=== PATIENT | male | born 1960 | race Caucasian/White ===

== ENCOUNTER → 2019-11-16 10:53 | Outpatient (BNVA) | payer MEDICARE, SELFPAY | PROVIDERS: Family Provider Family Medicine; PCP Family Medicine; Visit Provider Family Medicine | DX: Z01.810 Encounter for preprocedural cardiovascular examination (principal); M54.2 Cervicalgia | CPT/HCPCS: 36415; 80053; 85025 ==

== ENCOUNTER 2019-12-04 05:49 | Inpatient (IN) | payer MEDICARE, SELFPAY ==
[2019-12-01 10:59] VITALS: BMI 29.2
--- NOTE | 2019-12-01 11:28 | P.ANES_ITS ---
Pre-Anesthetic Assessment Pre-Anesthetic Assessment: Height/Weight: Height 1.96 m Weight 112.037 kg Preop Diagnosis: Cervical disc disease Proposed Procedure: Operation Date: 12/04/19 07:00 Proposed Procedures p Anterior Cervical Discectomy&Fusion 3Lev(Not Applicable) - Irving Bustos MD Was Beta Haim taken within 24 hours: N/A Social: Packs per day: 1.5 ppd 12-18 years of age, Comment: quit age 17; saw a family law legal assistant r/o COPD Exam: Pre-Anes Outpt Exam: alert, oriented x 3, clear to auscultation bilaterally and regular rate & rhythm Airway: Submandibular: WNL Cervical ROM: WNL MP: 3 Additional comments: Edentuloous,schneider, JOSE RAUL Pulmonary: Pulmonary: Asthma Comments: Breathing feels good, last used inhaler months ago CV/HEM: CV/HEM: HTN Comments: off BP meds since 07/03 with adrenal insufficiency : Comments: adrenal insufficiency GI: GI: GERD Comments: well controlled Metabolic: Comments: adrenal insufficiency, cholesterol Musc/skel: Musc/skel: Lower Back Pain Comments: cervical disc disease with pain headache, bolateral radiculopathy and weakness Neuropsych: Neuropsych: Seizure Comments: 1999 unknown CVA '16 memory, slurred, generalized weakness, some short term memory Anesthetic Plan: ASA status: III Anesthesia: General PFSH Anesthesia PFSH: Surgical History (Updated 11/16/19 @ 11:24 by Arielle Leavitt DO) H/O circumcision (Acute) H/O lithotripsy (Acute) S/P cholecystectomy (Acute) S/P knee replacement (Acute) Social History Smoking and tobacco status: former smoker Alcohol intake: never Data Anesthesia Cardiac Studies: No Data to Display
[2019-12-04] VITALS (24 sets, daily range): BP systolic 126–169; BP diastolic 71–92; PULSE 63–87; RESP 14–24; TEMP 36.7–37.5; O2SAT 92–99
[2019-12-04] MEDS: sodium chloride 0.9% 1,000 ML 30 ML IV (06:30)
--- NOTE | 2019-12-04 06:34 | ANES.PREANES ---
Pre-Anesthetic Assessment Pre-Anesthetic Assessment: Height/Weight: Height 1.96 m Weight 112.037 kg Temp Pulse Resp BP Pulse Ox 98.0 F 66 18 130/87 99 12/04/19 06:12 12/04/19 06:12 12/04/19 06:12 12/04/19 06:12 12/04/19 06:12 Preop Diagnosis: Cervical disc disease Proposed Procedure: Operation Date: 12/04/19 07:00 Proposed Procedures p Anterior Cervical Discectomy&Fusion 3Lev(Not Applicable) - Irving Bustos MD Last intake: Intake Last Liquid Date 12/03/19 Last Liquid Time 20:30 Last Solid Date 12/03/19 Last Solid Time 20:00 Social: Social History: No alcohol and No tobacco Exam: Pre-Anes Outpt Exam: alert, oriented x 3, clear to auscultation bilaterally and regular rate & rhythm Airway: Cervical ROM: Other (very limited) MP: 3 Dentition: Full History/ROS: No significant history except as noted Pulmonary: Pulmonary: Asthma, EVANS and Sleep apnea CV/HEM: CV/HEM: HTN : Comments: stones Hepatic: Hepatic: None reported GI: GI: GERD (controlled) Metabolic: Metabolic: Hyperlipidemia Musc/skel: Musc/skel: Lower Back Pain and Weakness (BLE) Neuropsych: Neuropsych: Neuropathy (Bilat U & L Ext) Anesthetic Plan: ASA status: III Anesthesia: Anesthesia Evaluation and General Risk of > 500 ml blood loss (7ml/kg in children): Yes, adequate IV access and fluids planned PFSH Anesthesia PFSH: Surgical History (Updated 11/16/19 @ 11:24 by Arielle Leavitt DO) H/O circumcision (Acute) H/O lithotripsy (Acute) S/P cholecystectomy (Acute) S/P knee replacement (Acute) Social History Smoking and tobacco status: former smoker Alcohol intake: never Data Anesthesia Cardiac Studies: No Data to Display
--- NOTE | 2019-12-04 07:10 | PM.HPUD ---
H&P update H&P Update: DATE OF SURGERY/PROCEDURE: 12/04/19 DATE H&P PERFORMED: 11/16/19 H&P UPDATE INFORMATION: H&P completed within last 30 days, Changes to prior documentation as noted here (Off Plavix x > 7 days.) and H&P is in [facility] EMR on date indicated PREOP DIAGNOSIS: Intervertebral disc disorder with myelopathy, midcervical PLANNED PROCEDURE: Operation Date: 12/04/19 07:00 Proposed Procedures Anterior Cervical Discectomy/Fusion/Fixation, C3-C7 Full H&P Perinent History: Medical/Surgical History: Medical History (Updated 11/16/19 @ 11:26 by Arielle Leavitt DO) Adrenal insufficiency (Acute) Asthma (Acute) Bee allergy status (Acute) Benign prostatic hyperplasia without lower urinary tract symptoms (Acute) Cervical disc disorder with myelopathy of mid-cervical region (Acute) COPD (chronic obstructive pulmonary disease) (Acute) Depression (Acute) Dyslipidemia (Acute) Hepatosplenomegaly (Acute) Insomnia, unspecified (Acute) Left lower quadrant abdominal swelling, mass and lump (Acute) Lesion of ulnar nerve, right upper limb (Acute) Stroke-like symptoms (Acute) Thrombocytopenia, unspecified (Acute) Ulcer of esophagus without bleeding (Acute) Family History: Family History (Updated 11/09/19 @ 15:50 by Belen Diamond LPN) Sister Hypertension Mother Stroke Alzheimer disease Father Alzheimer disease Social History: Social History Smoking and tobacco status: former smoker Alcohol intake: never
--- NOTE | 2019-12-04 07:11 | XR_ITS ---
WS: [id number] INTRAOPERATIVE TECHNIQUE: 1 lateral image cervical spine CLINICAL INFORMATION: surgery COMPARISON: None. FINDINGS: Endotracheal tube. Anterior localization marker at C6. XR/XR cervical spine [facility] [id number] IMPRESSION: Images obtained for intraoperative purposes.
--- NOTE | 2019-12-04 07:23 | P.OP_ITS ---
Brief Operative Note: Date of procedure: 12/04/19 Pre-op diagnosis: Intervertebral disc disorder with myelopathy, midcervical Post-op diagnosis: other (Same, with instability of joint) Procedure Done: C3-C4, C4-C5, C5-C6, C6-C7 ACDFF Surgeon: Irving Bustos Estimated blood loss (mL): 60 Complications: None. Post-op Plan: PACU, then surgical khalil Condition: stable Disposition: PACU Coding Level of Care Code Acute Gas Meter Installer Helper for Genny Molina
--- NOTE | 2019-12-04 08:10 | SUR.OPER ---
Family Notified Of Patient's Status Via Phone.
--- NOTE | 2019-12-04 08:23 | XR_ITS ---
WS: [id number] INTRAOPERATIVE TECHNIQUE:Single lateral view cervical spine CLINICAL INFORMATION: SURGERY COMPARISON: None. FINDINGS: Localization marker anteriorly at C4-5. Mild spondylitic changes. XR/XR cervical spine 1ort [id number] IMPRESSION: Images obtained for intraoperative purposes.
--- NOTE | 2019-12-04 08:29 | SUR.OPER ---
SURGIFOAM 1 SPONGE WAS USED IN THE NECK. LOT [id number] EXP 05/08/23.
--- NOTE | 2019-12-04 09:18 | SUR.OPER ---
Family Notified Of Patient's Status Via Phone.
--- NOTE | 2019-12-04 10:19 | SUR.OPER ---
Family Notified Of Patient's Status Via Phone.
--- NOTE | 2019-12-04 11:27 | SUR.OPER ---
Family Notified Of Patient's Status Via Phone.
--- NOTE | 2019-12-04 12:27 | SUR.OPER ---
Family Notified Of Patient's Status Via Phone.
--- NOTE | 2019-12-04 13:26 | SUR.OPER ---
Family Notified Of Patient's Status Via Phone.
--- NOTE | 2019-12-04 13:50 | XR_ITS ---
WS: [id number] CERVICAL SPINE TECHNIQUE: 3 views of the cervical spine CLINICAL INFORMATION: Arthrodesis status COMPARISON: FINDINGS: Straightening of the normal cervical lordosis. Postoperative changes anterior cervical fusion C3-C7 w ith interbody fusion. Hardware appears in good position. XR/XR cervical spine 3V* [id number] IMPRESSION: Postoperative anterior cervical fusion C3-C7 with interbody fusion. Hardware ap pears in good position.
--- NOTE | 2019-12-04 14:05 | SUR.PHASEI ---
PT CONTINUES TO SLEEP WITH GOOD RESP NOTED DRESSING TO LT ANTERIOR NECK D/I WITH SMALL SPOT OF RED DRAINAGE TO DRESSING C COLLAR IN PLACE PT DOES NOT AWAKE TO TOUCH OR VOICE, X RAYS DONE AT BEDSIDE, PT COUGHS OCCASIONALLY, VSS 1405 PT ON RA TRIAL, PT STILL DOES NOT AWAKE, DOES OPEN EYES BUT QUICKLY BACK TO SLEEP VSS.
--- NOTE | 2019-12-04 14:21 | SUR.PHASEI ---
PT OPENS EYES AND LOOKS AT SPEAKER BUT DOES NOT RESPOND, PT QUICKLY BACK TO SLEEP NOS/S OF DISTRESS OR PAIN, VSS
--- NOTE | 2019-12-04 14:33 | SUR.PHASEI ---
PT AWAKES TO VERBAL STIMULI BUT DOES NOT RESPOND APPROP, CALLS OUT A NAME, DOES NOT FOLLOW COMMAND, PT MOVES ALL EXT BUT NOT TO COMMAND, VSS. PT SATS 91-92% ON RA NOW PLACED ON 3LNC SATS QUICKLY UP TO 97%.
--- NOTE | 2019-12-04 14:34 | SUR.PHASEI ---
1415 PT IN WAITNG ROOM UPDATED PT STABLE BUT VERY SLEEPY AND WILL BE ANOTHER 30 MINUTES OR MORE BEFOR HE GOES TO FLOOR. 1430 UPDATED PT STABLE , HOPE TO GO TO FLOOR IN 20 MINUTES , TO WAIT ON FLOOR.
--- NOTE | 2019-12-04 14:55 | SUR.PHASEI ---
1450 PT DOES NOT AWAKE TO TOUCH OR VOICE, BLOOD GLUCOSE TEST AT BEDSIDE PER DR CAMP ORDER, VSS DR CAMP AT BEDSIDE , NO FURTHER ORDERS NOTED. WILL CONTINUE TO MONITOR PT.
[2019-12-04 15:05] LABS: Glucose Point of Care 141 mg/dL (70-110)
--- NOTE | 2019-12-04 15:54 | SUR.PHASEI ---
1544 PT TO FLOOR AT BEDSIDE PT TALKATIVE WITH NURSE AND , PT MOVES ALL EXT TO COMMAND, PT STILL GROGGY AT TIMES, NECK DRESSING D/I WITH APPROX 1/2 DRSSING WITH LT PINK DRAINAGE, C COLLAR IN PLACE, PT SLID TO BED WITH ASSIST OF 4 NURSES.
[2019-12-04] MEDS: tamsulosin 0.4 mg Capsule PO (16:55)
[2019-12-04] MEDS: magnesium oxide 400 mg tablet PO (16:55)
[2019-12-04] MEDS: atorvastatin 40 mg Tablet 20 MG PO (16:56)
[2019-12-04] MEDS: gabapentin 300 mg Capsule PO ×2 (16:57→22:04)
[2019-12-04] MEDS: docusate sodium 100 mg Capsule PO (16:57)
[2019-12-04] MEDS: lactated ringers 1,000 ML 90 ML IV (16:58)
[2019-12-04] MEDS: midodrine 5 mg TABLET PO ×2 (17:08→22:02)
[2019-12-04] MEDS: sucralfate 1 gm Tablet PO ×2 (17:08→22:04)
--- NOTE | 2019-12-04 19:19 | P.PN_ITS ---
Subjective Subjective: Interval history: My left shoulder aches. Vitals/I&O/Wt Last Vital Signs Temp 99.5 F 12/04/19 16:20 Pulse 72 12/04/19 17:50 Resp 16 12/04/19 17:50 BP 152/83 12/04/19 17:50 Pulse Ox 97 12/04/19 17:50 12/04/19 12/04/19 12/04/19 06:59 14:59 22:59 Intake Total 1600 / 1600 Output Total 330 / 330 Balance 1270 / 1270 Physical Exam Const: GENERAL APPEARANCE: cooperative Neck/C-Spine: GENERAL: Yes trachea midline, No anterior neck swelling and Yes other CERVICAL SPINE: Yes collar present Resp: COMMON NORMALS: normal respiratory effort EFFORT & INSPECTION: Yes able to speak in complete sentences and No stridor Neuro: COMMON NORMALS: moves all extremities Psych: COMMON NORMALS: speech normal ATTITUDE: Yes calm SPEECH: Yes normal speech ATTENTION/CONCENTRATION: Yes attention grossly intact INSIGHT: insight good JUDGEMENT: judgment good Skin: WOUNDS: Yes surgical site Details: drainage Details: serosanguineous (old drainage on surgical site dressing.) and other (Dressing changed at bedside. Incision intact, with Steristrips present.) Urinary Catheter Management^: Calvo: Cath Placed During This Visit: no A&P Assessment and plan (1) Cervical disc disorder with myelopathy of mid-cervical region: S/p C3-C7 ACDFF earlier today. He has been seen by PT, but ambulation and completion of the postop spine protocol was deferred due to patient sedation. He complains of left shoulder achiness, which could be related to exacerbation of chronic left upper extremity postraumatic changes by the extended period of immobilization under anesthesia today. Postop x-rays were reviewed, and the surgical site dressing was changed. Plan completion of scheduled postop IV antibiotics, and the Physical Therapy postop spine protocol. Anticipate home tomorrow. Status: Resolved Code(s): M50.020 - Cervical disc disorder with myelopathy, mid-cervical region, unspecified level (2) Instability of joint: Status: Resolved Code(s): M25.30 - Other instability, unspecified joint (3) Status post cervical spinal fusion: Status: Acute Code(s): Z98.1 - Arthrodesis status Attestations Medical Necessity Statement*: Patient is appropriate for postoperative in- hospital management after multilevel ACDFF. Coding Level of Care Code Acute Neon Tube Bender for Chg Fwd Exam Problem Focused Diagnoses Cervical disc disorder with myelopathy of mid-cervical region M50.020 Instability of joint M25.30 Status post cervical spinal fusion Z98.1 Comment Postop global visit.
--- NOTE | 2019-12-04 19:24 | PC.CHAP ---
Pastoral Care Encounter/Spiritual Assessment Type of Contact [] Declined contact officer visit [] Patient/Family/Request visit [] Outpatient visit [] Follow-up visit [] Physician referral [] Code/Alert [x] Routine visit [] Staff referral [] Actively dying [] Patient sleeping [] Family support [] [] Out of room [] Palliative care [] [] Receiving care in room [] Pre-surgical visit [] Trauma [] Long length of stay [] ICU visit [] Other:Post surgical visit Relational/Emotional Strength [x] Patient feels connected with others/family/visitors/staff [] Distress [] Loneliness/isolation [] Abandonment Spirituality of Patient [x] Person of Carmencita [x] Attends Orthodoxy of their Carmencita [x] Believes in Prayer [] Reads Bible or Amish materials [] There are Spiritual issues to be addressed Quirk Sander Interventions [x] Prayer [x] Active listening [x] Non-anxious presence [x] Spiritual/emotional support [] Crisis/trauma care [] Spiritual counseling [] Bereavement support [] Provided bereavement packet [] Provided Bible/devotional materials [] Provided toy/stuffed animal, coloring book to patient or family member [x] Completed spiritual assessment [] Provided Communion [] Anointing/[place] [] Salvation [] Other: Impact on Illness or Injury [] Angry [] Fearful [] Anxious [] Often cries [] Exhaustion [] Unable to work [] Unable to attend temple [] Unable to walk/stand [] Unable to read [] Unable to drive [] Unable to eat/drink [] Unable to sleep [] Unable to be with family [] Other: Summary Patient is recovering from surgery. He is in good spirit and has a positive attitude toward his recovery. Patient visited by Quirk Sander Manny Mccracken Time spent with patient 25 minutes
[2019-12-04] MEDS: ketorolac 30 mg/mL INJ IVP (20:14)
[2019-12-04] MEDS: cyclobenzaprine 10 mg Tablet 5 MG PO (20:24)
[2019-12-04] MEDS: HYDROcodone-acetaminophen 7.5-325 mg Tablet PO (22:32)
[2019-12-05] VITALS (7 sets, daily range): BP systolic 122–156; BP diastolic 70–81; PULSE 69–79; RESP 16–19; TEMP 36.7–36.8; O2SAT 92–97
[2019-12-05] MEDS: ketorolac 30 mg/mL INJ IVP ×3 (02:04→13:18)
[2019-12-05] MEDS: sucralfate 1 gm Tablet PO ×3 (02:04→15:24)
[2019-12-05] MEDS: lactated ringers 1,000 ML 90 ML IV (02:04)
[2019-12-05] MEDS: HYDROcodone-acetaminophen 7.5-325 mg Tablet PO ×2 (02:42→08:35)
[2019-12-05] MEDS: multivitamin therapeutic Tablet 1 TAB PO (05:05)
[2019-12-05] MEDS: cyclobenzaprine 10 mg Tablet 5 MG PO ×2 (05:05→11:09)
[2019-12-05] MEDS: magnesium oxide 400 mg tablet PO (08:35)
[2019-12-05] MEDS: midodrine 5 mg TABLET PO ×2 (08:35→15:24)
[2019-12-05] MEDS: topiramate 100 mg Tablet PO (08:35)
[2019-12-05] MEDS: pantoprazole DR 40 mg Tablet PO (08:35)
[2019-12-05] MEDS: duloxetine 60 mg Capsule PO (08:36)
[2019-12-05] MEDS: ascorbic acid 500 mg Tablet PO (08:36)
[2019-12-05] MEDS: docusate sodium 100 mg Capsule PO (08:36)
[2019-12-05] MEDS: tamsulosin 0.4 mg Capsule PO (08:36)
[2019-12-05] MEDS: ferrous sulfate EC 325 mg Tablet PO (08:36)
[2019-12-05] MEDS: atorvastatin 40 mg Tablet 20 MG PO (08:37)
[2019-12-05] MEDS: hydrocortisone 10 mg Tablet PO (08:38)
[2019-12-05] MEDS: gabapentin 300 mg Capsule PO ×2 (08:43→15:24)
--- NOTE | 2019-12-05 12:40 | PC.CHAP ---
Pastoral Care Encounter/Spiritual Assessment Type of Contact [] Declined senior professional services consultant visit [] Patient/Family/Request visit [] Outpatient visit [] Follow-up visit [] Physician referral [] Code/Alert [x] Routine visit [] Staff referral [] Actively dying [] Patient sleeping [] Family support [] [] Out of room [] Palliative care [] [] Receiving care in room [] Pre-surgical visit [] Trauma [] Long length of stay [] ICU visit [] Other: Relational/Emotional Strength [] Patient feels connected with others/family/visitors/staff [] Distress [] Loneliness/isolation [] Abandonment Spirituality of Patient [x] Person of Carmencita [x] Attends Yazidi of their Carmencita [x] Believes in Prayer [x] Reads Bible or Scientologist materials [] There are Spiritual issues to be addressed Spring Winder Interventions [x] Prayer [x] Active listening [x] Non-anxious presence [x] Spiritual/emotional support [x] Crisis/trauma care [] Spiritual counseling [] Bereavement support [] Provided bereavement packet [] Provided Bible/devotional materials [] Provided toy/stuffed animal, coloring book to patient or family member x[x] Completed spiritual assessment [] Provided Communion [] Anointing/[place] [] Salvation [] Other: Impact on Illness or Injury [] Angry [] Fearful [] Anxious [] Often cries [] Exhaustion [] Unable to work [] Unable to attend mandaeism [] Unable to walk/stand [] Unable to read [] Unable to drive [] Unable to eat/drink [] Unable to sleep [] Unable to be with family [] Other: Summary patient doing well ready to go [id number] Time spent with patient 15 min
--- NOTE | 2019-12-05 12:43 | PC.CHAP ---
Pastoral Care Encounter/Spiritual Assessment Type of Contact [] Declined chief supply chain officer visit [] Patient/Family/Request visit [] Outpatient visit [] Follow-up visit [] Physician referral [] Code/Alert [x] Routine visit [] Staff referral [] Actively dying [] Patient sleeping [] Family support [] [] Out of room [] Palliative care [] [] Receiving care in room [] Pre-surgical visit [] Trauma [] Long length of stay [] ICU visit [] Other: Relational/Emotional Strength [] Patient feels connected with others/family/visitors/staff [] Distress [] Loneliness/isolation [] Abandonment Spirituality of Patient [x Person of Carmencita [x] Attends Restorationism of their Carmencita [x] Believes in Prayer [x] Reads Bible or Episcopal materials [] There are Spiritual issues to be addressed Line Closer Interventions [x] Prayer [x] Active listening [x] Non-anxious presence [x] Spiritual/emotional support [] Crisis/trauma care [] Spiritual counseling [] Bereavement support [] Provided bereavement packet [] Provided Bible/devotional materials [] Provided toy/stuffed animal, coloring book to patient or family member x[] Completed spiritual assessment [] Provided Communion [] Anointing/[place] [] Salvation [] Other: Impact on Illness or Injury [] Angry [] Fearful [] Anxious [] Often cries [] Exhaustion [] Unable to work [] Unable to attend zoroastrian [] Unable to walk/stand [] Unable to read [] Unable to drive [] Unable to eat/drink [] Unable to sleep [] Unable to be with family [] Other: Summary patient doing good wants to go home Time spent with patient 15 min
[2019-12-05] MEDS: hydrocortisone 10 mg Tablet 5 MG PO (15:28)
--- NOTE | 2019-12-05 17:03 | PM.OP ---
Operative Report Date of procedure: 12/04/19 Pre-op Diagnosis: Intervertebral disc disorder with myelopathy, midcervical Post-op Diagnosis: Intervertebral disc disorder with myelopathy, mid cervical region Instability of joint Procedure Done: C3-C4, C4-C5, C5-C6, C6-C7 anterior cervical discectomy with osteophytectomy. C3-C4, C4-C5, C5-C6, C6-C7 anterior cervical plate and screw fixation. C3-C4, C4-C5, C5-C6, C6-C7 placement of intervertebral prosthetic devices. C3-C4, C4-C5, C5-C6, C6-C7 anterior cervical fusion utilizing morselized autograft obtained from the osteophytectomy portions of the procedure. Implants: Synthes Vectra plate/screws. ACIS ProTi Spacers. Specimens removed/disposition: Intervertebral disc fragments to pathology Surgeon: Irving Bustos Anesthesia: General Estimated blood loss (mL): 60 Complications: None. Condition: stable Brief History: The patient is a 59-year-old male with symptomatic, radiographically confirmed cervical disc/joint disease and associated neural impingement. Imaging studies demonstrated significant canal compromise from C3-C7. Conservative management did not provide adequate lasting symptom relief. After review of the diagnostic and treatment options with the risks/potential benefits/rationale for each, the patient requested to proceed with surgical intervention. Procedure: After routine preoperative evaluation and informed consent were obtained, the patient was taken to the Operating Room and placed under general endotracheal anesthesia. He was positioned supine and fit in the [facility] tongs for the application of in-line cervical traction. The anterolateral neck on the left was prepared with hair clippers. A proposed transverse skin incision was marked with a sterile skin marker, utilizing intraoperative radiography and regional anatomy for localization. The area was scrubbed with Betadine, prepped with DuraPrep, and draped with sterile towels and drapes. Ioban surgical barrier was applied. The proposed incision site was infiltrated with 1% Xylocaine with Epinephrine. A skin incision was made and carried down into the subcutaneous tissues. The platysma was identified and divided in the direction of its fibers. A plane was dissected just medial to the carotid sheath and lateral to the midline esophagus and trachea. Prevertebral soft tissues were bluntly dissected free of the anterior margin of the cervical spine. Longus coli muscles were freed from their medial attachments. Deep self-retaining retractors were placed. Intraoperative radiography verified the desired surgical levels. The C3-C4, C4-C5, C5-C6, and C6-C7 interspaces were sequentially incised with a #11 blade. Discectomies were accomplished utilizing various curettes and pituitary rongeurs. Anterior marginal osteophytes were resected with the Lempert and Kerrison rongeurs. Cartilaginous end plates were stripped free with curettes. Posterior marginal osteophytes were resected with thin foot plate Kerrison rongeurs. The medial aspects of the neural foramina were enlarged in a similar manner. Posterior longitudinal ligament was divided and resected as necessary to further the decompression. Due to extensive bony overgrowth of the disc space and marginal osteophyte contribution to neural impingement, the Subarctic Limited high-speed drill with dani sherita was utilized to complete the osteophytectomy portions of the procedure and for endplate preparation. Once the decompressions were felt to be adequate at all levels, the disc spaces were sized. A 7 mm ACIS ProTi lordotic/medium Spacer was chosen for each level. The Spacers were packed with morselized autograft obtained from the osteophytectomy portions of the procedure. The Spacers were sequentially placed within the C3-C4, C4-C5, C5-C6, and C6-C7 interspaces while in-line cervical traction was applied via the Villarreal-Wells tongs. Once the Spacers were felt to be in good position, a Synthes Vectra plate of the desired size was chosen. The plate was bent to match the curvature of the patient's cervical spine utilizing the plate nicole. The plate was secured to the C3, C4, C5, C6 and C7 vertebral bodies with bilateral 4 mm x 16 mm self-drilling screws. Final screw tightening was performed, and the locking mechanisms within the plate were noted to engage the screws at each site. The construct was inspected and felt to be in good position and secure. The wound was copiously irrigated with sterile saline and antibiotic irrigation. Hemostasis was ensured with the bipolar electrocautery. Wound closure was performed in multiple layers with 2-0 Vicryl Plus simple interrupted closure of the platysma and deep dermis as separate layers. Final skin closure was performed with 4-0 Vicryl Plus in a running subcuticular pattern. Steri-Strips were applied and a sterile dressing was placed. The patient was released from the Villarreal-Wells tongs and fit in a [place] collar. He was transferred onto the Recovery Room cart in the supine position. He was extubated without incident. The patient tolerated the procedure well. All sponge, needle, and instrument counts were correct at the completion of the procedure.
--- NOTE | 2019-12-25 08:20 | PM.DCS ---
Discharge Providers Date of Admission: 12/04/19 05:49 Date of Discharge: December 05, 2019 Attending Provider at Admission: Irving Bustos MD Attending Provider at Discharge: Irving Bustos MD Primary Care Provider: Arielle Leavitt DO Diagnoses at Discharge Discharge Diagnosis (1) Cervical disc disorder with myelopathy of mid-cervical region: Status: Resolved Problem details: Patient is doing well after C3-C7 ACDFF performed yesterday. He appears appropriate for discharge home today. (2) Instability of joint: Status: Resolved (3) Status post cervical spinal fusion: Status: Acute Reason for Visit Reason for Visit: Reason For Visit: Cervical Disc Disorder With myelopathy, mid cervical region Brief History: The patient is a 59-year-old male with symptomatic, radiographically confirmed cervical disc/joint disease and associated neural impingement. Imaging studies demonstrated significant canal compromise from C3-C7. Conservative management did not provide adequate lasting symptom relief. After review of the diagnostic and treatment options with the risks/potential benefits/rationale for each, the patient requested to proceed with surgical intervention. Hospital Course Hospital Course: The patient underwent C3-C7 ACDFF on 12/04/2019. He tolerated the procedure well. He completed perioperative intravenous antibiotic doses, and the physical therapy postoperative spine protocol. He was ambulatory, voiding, and tolerating regular diet prior to discharge home on Postoperative Day #1. Physical Exam Const: COMMON NORMALS: no apparent distress GENERAL APPEARANCE: cooperative and comfortable Neck/C-Spine: COMMON NORMALS: supple and no JVD GENERAL: Yes trachea midline CERVICAL SPINE: Yes collar present Resp: COMMON NORMALS: normal respiratory effort EFFORT & INSPECTION: Yes able to speak in complete sentences and No stridor Cardio: COMMON NORMALS: no JVD and regular rate RATE: regular rate Neuro: COMMON NORMALS: moves all extremities Skin: WOUNDS: Yes surgical site (Left anterolateral neck surgical site dressing clean/dry/intact.) Urinary Catheter Management^: Cal[place]: Cath Placed During This Visit: yes, but has since been removed by the nurse Urinary Catheter Date of Insertion: 12/04/19 Urinary Catheter Time of Insertion: 07:30 Date Urinary Catheter Removed: 12/04/19 Time Urinary Catheter Discontinued: 13:40 Discharge Data Data Completed and Pending: Completed Studies During Hospitalization Category Date Time Status XR cervical spine 1 view portable [ XR cervical spine Exams 12/04/19 07:11 Completed 1Vport 62960] Rou moises XR cervical spine 1 view portable [ XR cervical spine Exams 12/04/19 08:23 Completed 1Vport 37250] Rou moises XR cervical spine 3V* [id number] Routine Exams 12/04/19 13:50 Completed Pathology: Surgic al [PTH] Routine Pth 12/04/19 13:44 Completed Addt'l Data from Hospital Stay: C-spine x-rays: Postoperative changes of recent C3-C7 ACDFF, without noted complication. Vitals: Last Vital Signs Temp 98.0 F 12/05/19 15:43 Pulse 71 12/05/19 15:43 Resp 17 12/05/19 15:43 BP 134/73 12/05/19 15:43 Pulse Ox 93 12/05/19 15:43 Discharge Plan Discharge Patient Disposition: Home, Self-Care Condition: Stable Prescriptions: New hydrocodone-acetaminophen 7.5-325 mg Tablet 1 - 2 tab PO Q4H PRN (Reason: Moderate To Severe Pain) Qty: 30 RF: 0 Continued topiramate [Topamax] 100 mg tablet 100 mg PO ONCE RF: 0 sumatriptan succinate 100 mg tablet 100 mg PO ONCE RF: 0 atorvastatin 20 mg tablet 20 mg PO ONCE RF: 0 Dexilant 30 mg capsule,biphase delayed releas 30 mg PO ONCE RF: 0 gabapentin 300 mg capsule 300 mg PO TID RF: 0 hydrocortisone 10 mg tablet 10 mg PO ONCE RF: 0 hydrocortisone 5 mg tablet 5 mg PO ONCE RF: 0 midodrine 5 mg tablet 5 mg PO TID RF: 0 sucralfate 1 gram tablet 1 gm PO Q6H RF: 0 tamsulosin 0.4 mg capsule 0.4 mg PO BID RF: 0 albuterol sulfate [Ventolin HFA] 90 mcg/actuation HFA aerosol inhaler 2 puff INHALATION Q6H PRN (Reason: Shortness Of Breath) RF: 0 ferrous sulfate [FeroSul] 325 mg (65 mg iron) tablet 325 mg PO ONCE RF: 0 ascorbic acid (vitamin C) 500 mg tablet 500 mg PO ONCE RF: 0 magnesium oxide 500 mg tablet 500 mg PO BID RF: 0 multivitamin Tablet 1 tab PO QAM RF: 0 melatonin 10 mg capsule 10 mg PO ONCE RF: 0 potassium gluconate 595 mg (99 mg) tablet 595 mg PO ONCE RF: 0 omega-3 fatty acids [Fish Oil Concentrate] 1,000 mg capsule 1,000 mg PO BID RF: 0 B-complex with vitamin C [Super B/C] Capsule 1 cap PO ONCE RF: 0 calcium carb-vitamin D3-vit K2 600 mg-1,000 unit-90 mcg tablet 1 tab PO BID RF: 0 albuterol sulfate 2.5 mg /3 mL (0.083 %) solution for nebulization 2.5 mg INHALATION QID RF: 0 epinephrine 0.3 mg/0.3 mL auto-injector 0.3 mg IM ONCE RF: 0 Held clopidogrel [Plavix] 75 mg tablet 75 mg PO ONCE RF: 0 Hold Instructions: Resume on 12/07/19. hydrocodone-acetaminophen 10-325 mg tablet 1 tab PO Q6H PRN (Reason: Pain) RF: 0 Hold Instructions: Hold until completion of new [place] Rx, then resume PRN Aspirin Low Dose 81 mg Tablet,Delayed Release (Dr/Ec) 81 mg PO DAILY RF: 0 Hold Instructions: Resume on 12/06/19. No Action trazodone 50 mg tablet 100 mg PO .bedtime PRN (Reason: sleep) Qty: 60 RF: 4 duloxetine 60 mg capsule,delayed release(DR/EC) 60 mg PO QAM Qty: 30 RF: 4 cyclobenzaprine 5 mg tablet 5 mg PO TID PRN (Reason: Muscle Spasm) Qty: 90 RF: 0 Discharge Orders: Discharge Order (Routine); Ordered 12/05/19 Ordered By: Irving Bustos Referrals: Irving Bustos MD [Physician] - 12/18/19 9:00 am (AP/lateral c-spine x-rays prior to visit.go to [facility] [place] [facility]) Discharge Diet: Advance as tolerated Discharge Activity: Limit activity as instructed Patient Instructions: Hydrocodone/Acetaminophen (By mouth), Anterior Cervical Discectomy (DC) Activity Restrictions/Additional Instructions: Activity -Cervical fusion: Wear cervical collar 24 hours a day. Change as necessary for showering, shaving, or if it becomes soiled. -No lifting or reaching overhead. - No driving until office followup visit - No lifting/pushing/pulling over 10 pounds - Avoid twisting or bending - Walking is encouraged - Home exercise per physical therapist - You may engage in sexual intercourse at any time as long as it is comfortable for you - Check with your doctor before returning to work. Notify your doctor if you develop: - temperature of 101.5 degrees F. or higher - redness or swelling of the incision - Foul drainage - increasing pain - increasing numbness or tingling in the arms or legs - New or increasing problems with vision, balance, memory, speaking, nausea or vomiting Hygiene: - Showering is okay - No tub baths or soaking Other: Remove outer bandage 3 days after surgery. If you have paper strips, leave in place until they fall off on their own. If you have stitches, keep your incision dry until the stitches are removed. Your doctor's office is available to answer any questions from 7 AM to 5:00 PM, Wednesday through at [phone]. After hours, go to the emergency room at [facility] or call 911 for assistance. Discharge Date/Time: 12/05/19 16:57 Discharge Attestations Time Spent in Discharge Care*: other (postop global) Quality Metrics Clinical Quality Measures During this hospital stay, did patient experience: None Coding Level of Care Code Acute Dentist for Genny Fwd Exam Problem Focused Diagnoses Cervical disc disorder with myelopathy of mid-cervical region M50.020 Instability of joint M25.30 Status post cervical spinal fusion Z98.1 Comment postop global
== END 2019-12-05 16:57 | disposition home or self-care (01) | DRG 473 ==
PROVIDERS: Admitting Provider Specialist; Family Provider Family Medicine; PCP Family Medicine; Visit Provider Specialist
PROC: 0RB30ZZ Excision of Cervical Vertebral Disc, Open Approach (ICD-10-PCS; CPT 22551; principal; 2019-12-04 07:00)
DX: M50.01 Cervical disc disorder with myelopathy, high cervical region (principal); N40.0 Benign prostatic hyperplasia without lower urinary tract symptoms; J44.9 Chronic obstructive pulmonary disease, unspecified; F32.9 Major depressive disorder, single episode, unspecified; E78.5 Hyperlipidemia, unspecified; G47.00 Insomnia, unspecified
CPT/HCPCS: 12345; 36416; 51702; 72020; 72040; 82962; 88304; 94664; 96365; 96375; 97110; 97161; 97530; 97760; C1713; J0690; J1100; J1885; J2001; J2405; J2704; J3010; J3490; J7030; J8499; L0172; L0174

== ENCOUNTER 2019-12-18 10:26 | Outpatient (CLI) | payer MEDICARE, SELFPAY ==
--- NOTE | 2019-12-18 10:54 | XRR_ITS ---
PROCEDURE INFORMATION: Exam: XR Cervical Spine, 2 or 3 Views Exam date and time: 12/18/2019 11:12 AM Age: 59 years old Clinical indication: Condition or disease; Other: Arthrodesis status TECHNIQUE: Imaging protocol: XR of the cervical spine, 2 or 3 views. COMPARISON: CR XR cervical spine 3V* [id number] 12/04/2019 1:53 PM FINDINGS: Vertebrae: Alignment is normal. posterior vertebral line and the spinal laminar line normal odontoid process likely normal no fracture Interbody fusion C3-C4, C4-C5, C5-C6 and C6-C7.Surgical plate closely opposed to the anterior aspect of the vertebral bodies. Soft tissues: Normal. XR/XR cervical spine 3V* [id number] IMPRESSION: Interbody fusion C3-C4, C4-C5, C5-C6 and C6-C7.Surgical plate closely opposed to the anterior aspect of the vertebral bodies.
== END 2019-12-18 10:27 | disposition home or self-care (01) ==
PROVIDERS: Family Provider Family Medicine; PCP Family Medicine; Visit Provider Specialist
DX: Z98.1 Arthrodesis status (principal)
CPT/HCPCS: 72040

== ENCOUNTER → 2019-12-20 08:07 | Outpatient (BNVA) | payer MEDICARE, SELFPAY | PROVIDERS: Family Provider Family Medicine; PCP Family Medicine; Visit Provider Nurse Practitioner Psychiatric/Mental Health | DX: F33.2 Major depressive disorder, recurrent severe without psychotic features (principal); F41.1 Generalized anxiety disorder | CPT/HCPCS: 99213 ==

== ENCOUNTER 2019-12-20 10:26 | Outpatient (CLI) | payer MEDICARE, SELFPAY ==
--- NOTE | 2019-12-20 11:30 | CT_ITS ---
WS: [id number] CT CERVICAL SPINE HISTORY: s/p cervical spinal fusion TECHNIQUE: Contiguous 2.5 mm axial imaging performed through the entire cervical spine. Sagittal and coronal reformats also performed. All CT scans at [facility] use at least one of these do se optimization techniques: automated exposure control; mA and/or kV adjustment per patient size (inc ludes targeted exams where dose is matched to clinical indication); or iterative reconstruction. DLP: 787.64 mGy.cm COMPARISON: 03/20/2019 MRI C-spine Since the prior MRI anterior cervical fusion has been placed extending consecutively from C3 through C7. Interbody spacers at C3-4, C4-5, C5-6 and C6-7. No subsidence. Disc spaces have been restored. C2-C3: Small osteophytes and shallow central protrusion. Mild LEFT foraminal narrowing. C3-C4: Osteophytic ridging around the vertebral bodies. Moderate bilateral foraminal stenosis and mil d central stenosis. C4-C5: Extensive osteophytosis extending towards the foramen. There is moderate central with severe b ilateral foraminal stenosis. C5-C6: Extensive osteophytic ridging resulting in severe bilateral foraminal and mild central stenosi s. C6-C7: Extensive osteophytic ridging. Moderate bilateral foraminal stenosis and mild central stenosis . C7-T1: Moderate bilateral foraminal stenosis. Soft tissues are normal. Lung apices are clear. CT/CT cervical spin wo con* [id number] IMPRESSION: 1. Status post extensive consecutive anterior cervical fusion from C3 through C7 with interbody spacers. No complications. 2. Extensive multilevel central and foraminal stenosis as above. Moderate to s evere stenosis at multiple levels.
== END 2019-12-20 10:27 | disposition home or self-care (01) ==
LOC: RAD 10:32
PROVIDERS: Family Provider Family Medicine; PCP Family Medicine; Visit Provider Licensed Practical Nurse
DX: Z98.1 Arthrodesis status (principal); M48.02 Spinal stenosis, cervical region
CPT/HCPCS: 72125; 99213

== ENCOUNTER 2020-01-29 09:53 | Outpatient (CLI) | payer MEDICARE, SELFPAY ==
--- NOTE | 2020-01-29 10:00 | XR_ITS ---
WS: [id number] XR cervical spine 3V* [id number] REASON FOR EXAM: s/p cervical spinal fusion FINDINGS: Anterior fusion G1-H7-F7-C6-C7 with intraspinal spacers. Good alignment. . No cervical ribs.. Remaining cervical spine essentially normal. XR/XR cervical spine 3V* [id number] IMPRESSION: Anterior fusion C3-C7 with intraspinal spacers.
== END 2020-01-29 09:54 | disposition home or self-care (01) ==
LOC: RADWPI 09:59
PROVIDERS: Family Provider Family Medicine; PCP Family Medicine; Visit Provider Licensed Practical Nurse
DX: Z98.1 Arthrodesis status (principal)
CPT/HCPCS: 72040

== ENCOUNTER → 2020-02-05 08:00 | Outpatient (BNVA) | payer MEDICARE, SELFPAY | PROVIDERS: Family Provider Family Medicine; PCP Family Medicine; Visit Provider Specialist | DX: G43.909 Migraine, unspecified, not intractable, without status migrainosus (principal); Z87.891 Personal history of nicotine dependence | CPT/HCPCS: 99213 ==

== ENCOUNTER 2020-02-21 11:31 | Outpatient (CLI) | payer MEDICARE, SELFPAY ==
--- NOTE | 2020-02-21 14:00 | CT_ITS ---
WS: [id number] CT CERVICAL SPINE HISTORY: s/p cervical spinal fusion TECHNIQUE: Contiguous 2.5 mm axial imaging performed through the entire cervical spine. Sagittal and coronal reformats also performed. All CT scans at [facility] use at least one of these do se optimization techniques: automated exposure control; mA and/or kV adjustment per patient size (inc ludes targeted exams where dose is matched to clinical indication); or iterative reconstruction. DLP: 1677.54 mGycm COMPARISON: 12/20/2019 Status post anterior cervical fusion extending from C3 through C7. Consecutive anterior cervical plat e across these levels with interbody spacers at each level. The disc spaces are very slightly narrowe d but maintained. No subsidence. No fracture. No lucency around the hardware or fracture of the hardw are. C2-C3: Central disc protrusion and mild LEFT foraminal narrowing. C3-C4: Osteophytic ridging around the vertebral bodies with moderate bilateral foraminal stenosis and mild central stenosis. C4-C5: Diffuse osteophytic ridging encroaching upon the ventral thecal sac and foramen. Moderate cent ral with severe bilateral foraminal stenosis. C5-C6: Extensive osteophytic ridging encroaching upon the ventral thecal sac and foramen. Severe bila teral foraminal stenosis and mild central stenosis. C6-C7: Extensive osteophytic ridging around the vertebral bodies. Severe bilateral foraminal stenosis and mild central stenosis. C7-T1: Moderate bilateral foraminal stenosis due to osteophyte disease. Lung apices are clear. CT/CT cervical spin wo con* [id number] IMPRESSION: 1. Extensive posterior cervical fusion with interbody spacers from C3 through C7 is intact with no change or complication. 2. Multilevel moderate to severe stenosis as described above. Similar to the p rior study of 12/20/2019.
== END 2020-02-21 11:32 | disposition home or self-care (01) ==
LOC: RADWPI 11:38
PROVIDERS: Family Provider Family Medicine; PCP Family Medicine; Visit Provider Specialist
DX: Z98.1 Arthrodesis status (principal); M48.02 Spinal stenosis, cervical region
CPT/HCPCS: 72125

== ENCOUNTER → 2020-03-13 07:34 | Outpatient (BNVA) | payer MEDICARE, SELFPAY | PROVIDERS: Family Provider Family Medicine; PCP Family Medicine; Visit Provider Nurse Practitioner Psychiatric/Mental Health | DX: F33.2 Major depressive disorder, recurrent severe without psychotic features (principal); F41.1 Generalized anxiety disorder | CPT/HCPCS: 99213 ==

== ENCOUNTER → 2020-03-21 08:10 | Outpatient (BNVA) | payer MEDICARE, SELFPAY | PROVIDERS: Family Provider Family Medicine; PCP Family Medicine; Visit Provider Family Medicine | DX: R68.82 Decreased libido (principal); M62.838 Other muscle spasm | CPT/HCPCS: 80048; 84403 ==

== ENCOUNTER → 2020-06-24 07:42 | Outpatient (BNVA) | payer MEDICARE, SELFPAY | PROVIDERS: Family Provider Family Medicine; PCP Family Medicine; Visit Provider Nurse Practitioner Psychiatric/Mental Health | DX: F33.2 Major depressive disorder, recurrent severe without psychotic features (principal); F41.1 Generalized anxiety disorder | CPT/HCPCS: 99214 ==

== ENCOUNTER → 2020-07-24 07:58 | Outpatient (BNVA) | payer MEDICARE, SELFPAY | PROVIDERS: Family Provider Family Medicine; PCP Family Medicine; Visit Provider Nurse Practitioner Psychiatric/Mental Health | DX: F33.2 Major depressive disorder, recurrent severe without psychotic features (principal); F41.1 Generalized anxiety disorder | CPT/HCPCS: 99214 ==

== ENCOUNTER → 2020-07-25 11:17 | Outpatient (BNVA) | payer MEDICARE, SELFPAY | PROVIDERS: Family Provider Family Medicine; PCP Family Medicine; Visit Provider Nurse Practitioner | DX: R31.0 Gross hematuria (principal); N39.0 Urinary tract infection, site not specified; N99.89 Other postprocedural complications and disorders of genitourinary system | CPT/HCPCS: 80053; 81000 ==

== ENCOUNTER → 2020-08-06 08:53 | Outpatient (BNVA) | payer MEDICARE, SELFPAY | PROVIDERS: Family Provider Family Medicine; PCP Family Medicine; Visit Provider Specialist | DX: G43.711 Chronic migraine without aura, intractable, with status migrainosus (principal); F09 Unspecified mental disorder due to known physiological condition; I95.1 Orthostatic hypotension; Z87.891 Personal history of nicotine dependence | CPT/HCPCS: 99214 ==

== ENCOUNTER 2020-09-16 12:35 | Emergency (ER) | payer MEDICARE, SELFPAY ==
[2020-09-16 12:41] VITALS: BP 128/83; PULSE 73; RESP 18; TEMP 36.4; O2SAT 96
--- NOTE | 2020-09-16 13:25 | CT_ITS ---
WS: [id number] CT ABDOMEN PELVIS TECHNIQUE: Contrast-enhanced CT of the abdomen and pelvis with coronal and sagittal reformatted image s. CLINICAL INFORMATION: abd pain COMPARISON: CT 2 26,016 DLP: 1247.[address] scans at [facility] use at least one of these dose optimization techniques: automat ed exposure control; mA and/or kV adjustment per patient size (includes targeted exams where dose is matched to clinical indication); or iterative reconstruction. FINDINGS: Mild to moderate left hydronephrosis with left pelvocaliectasis suspicious for UPJ stricture. Mild in flammatory stranding about the left proximal ureter at the UPJ. Proximal and distal left ureter is de compressed. No obstructing right renal or ureteral calculi. Normal renal parenchymal enhancement bila terally. Normal adrenal glands. Increased attenuation debris within the dependent bladder. Urine distended bladder with enlarged pros irene with calcification. Prostate measures 4.6 x 5.4 CM. Again seen is the chronic partially calcifie d fatty lesions in the left lower quadrant. These have a benign appearance and are stable since the p rior examinations likely due to epiploic appendigitis. Lung bases are well aerated. Normal caliber abdominal aorta. Tiny fat-containing umbilical hernia. No periaortic or inguinal lymphadenopathy. No pelvic lymphadenopathy. Chronic anterior wedging in the l ower thoracic spine. Moderate central canal stenosis L4-5. No evidence of small or large bowel obstru ction. Normal appendix in the right lower quadrant. CT/CT abdomen pelvis w con* [id number] IMPRESSION: 1. No obstructing renal or ureteral calculi. 2. Mild to moderate left hydronephrosis with left pelvocaliectasis. Transition at the UPJ suspicious for UPJ stricture. 3. No hydronephrosis right kidney. 4. Significantly enlarged prostate measuring 4.6 x 5.4 cm. Recommend correlati on PSA. 5. Increased attenuation debris within the dependent bladder likely due to pro teinaceous debris or blood products. Recommend correlation for UTI. 6. No abdominal or pelvic lymphadenopathy. 7. Normal appendix in the right lower quadrant. No evidence of small or large bowel obstruction. 8. Stable partially calcified fatty lesions left lower quadrant have a benign appearance and likely sequelae from prior epiploic appendigtis Notified Branden Randolph DO at 09/16/2020 3:05 PM.
--- NOTE | 2020-09-16 13:25 | XRR_ITS ---
PROCEDURE INFORMATION: Exam: XR Chest, 1 View Exam date and time: 09/16/2020 1:41 PM Age: 60 years old Clinical indication: Cough and dyspnea; Other: Low abdominal pain; Additional info: Dyspnea/cough TECHNIQUE: Imaging protocol: XR of the chest Views: 1 view. COMPARISON: CR Chest 1 [place] [id number] 01/19/2019 3:45 PM FINDINGS: Lungs: Unremarkable. No consolidation. Pleural space: Unremarkable. No pleural effusion. No pneumothorax. Heart/Mediastinum: Unremarkable. No cardiomegaly. Bones/joints: The patient has undergone lower cervical spine surgical fusion. XR/XR chest 1V portable [id number] IMPRESSION: No significant cardiopulmonary abnormality.
--- NOTE | 2020-09-16 13:25 | ECG_ITS ---
[facility] Test Date: 2020-09-16 Pat Name: Daniel Mata Department: Room: Gender: Male Fox Raiser: : 1960 Requested By: Branden Cota Order Number: [id number] Reading MD: SANTY SAWANT Measurements Intervals Melvin Rate: 71 P: 41 SD: 185 QRS: -27 QRSD: 102 T: 59 QT: 359 QTc: 392 Interpretive Statements SINUS RHYTHM BORDERLINE LEFT AXIS DEVIATION [QRS AXIS < -20] POSSIBLE RIGHT VENTRICULAR CONDUCTION DELAY [RSR (QR) IN V1/V2] NONSPECIFIC T-WAVE ABNORMALITY Compared to ECG 01/19/2019 21:39:19 T-wave abnormality now present Sinus bradycardia no longer present Electronically Signed On 09-16-2020 20:14:32 BONE CHAR KILN TENDER by SANTY SAWANT [id number]
[2020-09-16 13:38] LABS: Basophils # 0.1 10^3/uL (0.0-0.1); Basophils % 0.8 %; Eosinophils # 0.4 10^3/uL (0.0-0.8); Eosinophils % 6.1 %; Hematocrit 41.4 % (42.0-52.0); Hemoglobin 14.3 g/dL (11.7-16.6); Lymphocytes % 17.4 %; Mean Corpuscular HGB Conc 34.5 g/dL (30.0-36.0); Mean Corpuscular Hemoglobin 32.8 pg (28.0-34.0); Mean Platelet Volume 9.2 fL (7.4-10.4); Monocytes # 0.3 10^3/uL (0.2-0.9); Monocytes % 5.1 %; Neutrophils # 4.15 10^3/uL (1.8-7.7); Neutrophils % 70.3 %; Nucleated Red Blood Cells % 0 %; Platelet Count 126 10^3/cmm (130-400); Red Blood Count 4.36 10^6/uL (4.1-5.3); Red Cell Distribution Width 12.8 % (12.1-15.1); White Blood Count 5.9 10^3/uL (4.0-10.0)
[2020-09-16 13:57] LABS: Alanine Aminotransferase 76 U/L (0-41); Alkaline Phosphatase 93 IU/L (40-130); Anion Gap 13.1 (5-19); Aspartate Amino Transferase 52 U/L (0-40); Blood Urea Nitrogen 15 mg/dL (8-23); Calcium 9.9 mg/dL (8.5-10.5); Carbon Dioxide 23 mmol/L (22-29); Chloride 108 mmol/L (98-107); Globulin 2.2 g/dL (1.3-4.6); Glucose 128 mg/dL (65-115); Lipase 31 U/L (13-60); Osmolality Calculated 292 mOsm/kg (285-295); Potassium 4.1 mmol/L (3.5-5.1); Sodium 140 mmol/L (136-145); Total Bilirubin 0.6 mg/dL (0.15-1.2); Total Protein 6.2 g/dL (6.6-8.7)
--- NOTE | 2020-09-16 14:42 | W.ED.ABDPA2 ---
HPI - Abdominal Pain General: Chief Complaint: Abdominal Pain Stated Complaint: severe lwr abd pain Time Seen by Provider: 09/16/20 13:12 History of Present Illness: HPI narrative: 60-year-old male presents with complaint of abdominal pain initially began suprapubic left lower quadrant radiates across the lower abdomen now he had some diarrhea associated with it but denies dysuria urgency or frequency denies hematochezia or melena. No black tarry stools either. Did take some Kaopectate that seem to help for a while but he had to redose. He is currently on amoxicillin he was treated with Cipro and Flagyl for this when he seen Dr. Leavitt. The amoxicillin is currently on his for an ear infection he has not had any mucousy stools. MD elicited complaint: abdominal pain Onset (ago): day(s) Pain Consistency: constant Location: LLQ Severity: moderate Quality: cramping Radiation: RLQ Migration to: suprapubic Exacerbating factors: nothing Relieving factors: nothing Associated Symptoms: Reports bloating, change in stool character, GI cramping, diarrhea, nausea and poor appetite; Denies chills, coffee ground emesis, constipation, dyspepsia, dysuria, excessive flatus, fever(s), heartburn, hematochezia, hematuria, hematemesis, fecal incontinence, loose stools, melena, syncope and vomiting Review of Systems Const: Denies: fever(s) or chills ENMT: Denies: throat pain, ear or mastoid pain, nasal discharge or nasal congestion Card: Denies: syncope Resp: Denies: dyspnea, productive cough or non-productive cough GI: Reports: nausea, diarrhea, bloating, GI cramping and change in stool character; Denies: vomiting, hematemesis, coffee ground emesis, heartburn, constipation, excessive flatus, fecal incontinence, hematochezia or melena : Denies: dysuria or hematuria Skin/Breast: Denies: rash or pruritus PFSH ED PFSH: Medical History Adrenal insufficiency Asthma Bee allergy status Benign prostatic hyperplasia without lower urinary tract symptoms Cervical disc disorder with myelopathy of mid-cervical region Patient is doing well after C3-C7 ACDFF performed yesterday. He appears appropriate for discharge home today. COPD (chronic obstructive pulmonary disease) Depression Dyslipidemia Generalized anxiety disorder Hepatosplenomegaly Insomnia, unspecified Left lower quadrant abdominal swelling, mass and lump Lesion of ulnar nerve, right upper limb Major depressive disorder, recurrent severe without psychotic features Obstructive sleep apnea Stroke-like symptoms Thrombocytopenia, unspecified Ulcer of esophagus without bleeding Surgical History H/O circumcision H/O lithotripsy Post-operative state S/P cholecystectomy S/P knee replacement Status post cervical spinal fusion 12/04/2019 Dr. Agustina Bustos: C3-C4, C4-C5, C5-C6 and C6-C7 ACDFF Family History Sister Hypertension Mother Stroke Alzheimer disease Father Alzheimer disease Social History Smoking and tobacco status: former smoker Alcohol intake: never Household members: spouse Marital status: Current occupational status: disabled History of recent travel: No Physical Exam Const: COMMON NORMALS: no acute distress GENERAL APPEARANCE: cooperative and comfortable ORIENTATION/CONSCIOUSNESS: Yes awake, Yes oriented to person, Yes oriented to place and Yes oriented to time HENMT: COMMON NORMALS: normocephalic, atraumatic and hearing grossly normal bilaterally HEAD & SCALP: normocephalic and atraumatic Eye: COMMON NORMALS: Equal, round and reactive pupils present, EOMs intact bilaterally, conjunctivae normal and no scleral icterus CONJUNCTIVA: Yes conjunctivae normal PUPIL: Yes Equal, round and reactive pupils present Neck/C-Spine: COMMON NORMALS: full ROM, no lymphadenopathy, supple and no JVD Lymph: LYMPHATIC: no lymphadenopathy noted and no lymphedema noted Resp: COMMON NORMALS: normal respiratory effort, No retractions, No use of accessory muscles and clear to auscultation bilaterally AUSCULTATION: clear to auscultation bilaterally Cardio: COMMON NORMALS: no JVD, regular rate, regular rhythm and No murmurs present (Cardio) RATE: regular rate RHYTHM: regular rhythm GI: COMMON NORMALS: Soft to palpation and No hepatosplenomegaly present AUSCULTATION: Yes normoactive bowel sounds PALPATION: Yes Soft to palpation, No Tenderness to palpation present (GI), No Guarding due to palpation present (GI) and Yes No hepatosplenomegaly present Extremity: COMMON NORMALS: normal to inspection, capillary refill normal, no clubbing, cyanosis or edema, no calf tenderness and no pedal edema Neuro: SENSORIUM/ORIENTATION: Yes oriented to person, Yes oriented to place and Yes oriented to time Skin: COMMON NORMALS: no rashes or lesions noted GENERAL SKIN EXAM: no rashes or lesions noted Course Vital Signs: Vital signs: Vital Signs Temperature 97.6 F 09/16/20 12:41 Pulse Rate 78 09/16/20 15:45 Respiratory Rate 14 09/16/20 15:45 Blood Pressure 158/98 09/16/20 15:45 Pulse Oximetry 97 09/16/20 15:45 MDM - Abdominal Pain MDM Narrative: Medical decision making narrative: Ureteral stricture noted on the scan. We will go ahead and discharge patient home follow-up with Dr. Mendes for further evaluation if worsening or problems return to the emergency room Lab Data: Labs: Lab Results 09/16/20 09/16/20 Range/Units 13:27 13:27 WBC 5.9 (4.0-10.0) 10^3/ uL RBC 4.36 (4.1-5.3) 10^6/u L Hgb 14.3 (11.7-16.6) g/dL Hct 41.4 L (42.0-52.0) % MCV 95.0 H (80-94) fL MCH 32.8 (28.0-34.0) pg MCHC 34.5 (30.0-36.0) g/dL RDW 12.8 (12.1-15.1) % Plt Count 126 L (130-400) 10^3/c mm MPV 9.2 (7.4-10.4) fL Neut % (Auto) 70.3 % Lymph % (Auto) 17.4 % [place] % (Auto) 5.1 % Eos % (Auto) 6.1 % Baso % (Auto) 0.8 % Neut # (Auto) 4.15 (1.8-7.7) 10^3/u L Lymph # (Auto) 1.0 (0.8-4.8) 10^3/u L [place] # (Auto) 0.3 (0.2-0.9) 10^3/u L Eos # (Auto) 0.4 (0.0-0.8) 10^3/u L Baso # (Auto) 0.1 (0.0-0.1) 10^3/u L Nucleated RBC % (a uto) 0 % Nucleated RBCs # 0.0 /100WBC Sodium 140 (136-145) mmol/L Potassium 4.1 (3.5-5.1) mmol/L Chloride 108 H (98-107) mmol/L Carbon Dioxide 23 (22-29) mmol/L Anion Gap 13.1 (5-19) BUN 15 (8-23) mg/dL Creatinine 1.0 (0.7-1.2) mg/dL GFR Calculation 76.0 L (90-130) mL/min Glucose 128 H (65-115) mg/dL Calculated Osmolal ity 292 (285-295) mOsm/k g Calcium 9.9 (8.5-10.5) mg/dL Total Bilirubin 0.6 (0.15-1.2) mg/dL AST 52 H (0-40) U/L ALT 76 H (0-41) U/L Alkaline Phosphata se 93 (40-130) IU/L Total Protein 6.2 L (6.6-8.7) g/dL Albumin 4.0 (3.5-5.2) g/dL Globulin 2.2 (1.3-4.6) g/dL Lipase 31 (13-60) U/L Discharge Plan Discharge Patient Disposition: Home Clinical Impression: Hematuria, Ureteral stricture, left Condition: Stable Prescriptions: No Action ferrous sulfate [FeroSul] 325 mg (65 mg iron) tablet 325 mg PO DAILY RF: 0 hydrocodone-acetaminophen 10-325 mg tablet 1 tab PO Q6H PRN (Reason: Pain) RF: 0 Hold Instructions: Hold until completion of new [place] Rx, then resume PRN ascorbic acid (vitamin C) 500 mg tablet 500 mg PO DAILY RF: 0 magnesium oxide 500 mg tablet 500 mg PO BID RF: 0 multivitamin Tablet 1 tab PO QAM RF: 0 potassium gluconate 595 mg (99 mg) tablet 595 mg PO ONCE RF: 0 B-complex with vitamin C [Super B/C] Capsule 1 cap PO DAILY RF: 0 calcium carb-vitamin D3-vit K2 600 mg-1,000 unit-90 mcg tablet 1 tab PO BID RF: 0 albuterol sulfate 2.5 mg /3 mL (0.083 %) solution for nebulization 2.5 mg INHALATION QID RF: 0 topiramate [Topamax] 100 mg tablet 50 mg PO DAILY Qty: 15 RF: 3 omega-3 fatty acids [Fish Oil Concentrate] 1,000 mg capsule 2,000 mg PO DAILY RF: 0 metronidazole [Flagyl] 500 mg tablet 500 mg PO TID Qty: 30 RF: 0 ciprofloxacin HCl 500 mg tablet 500 mg PO BID Qty: 20 RF: 0 sumatriptan succinate 100 mg tablet 100 mg PO ONCE PRN (Reason: migraine headache) Qty: 9 RF: 5 atorvastatin 20 mg tablet 20 mg PO DAILY Qty: 30 RF: 0 tamsulosin 0.4 mg capsule 0.4 mg PO BID Qty: 60 RF: 1 Dexilant 30 mg capsule,biphase delayed releas 30 mg PO DAILY Qty: 30 RF: 1 cyclobenzaprine 5 mg tablet 5 mg PO TID PRN (Reason: Muscle Spasm) Qty: 90 RF: 1 clopidogrel [Plavix] 75 mg tablet 75 mg PO DAILY Qty: 30 RF: 2 Hold Instructions: Resume on 12/07/19. albuterol sulfate [Ventolin HFA] 90 mcg/actuation HFA aerosol inhaler 2 puff INHALATION Q6H PRN (Reason: Shortness Of Breath) Qty: 18 RF: 0 hydrocortisone 10 mg tablet 15 mg PO DAILY Qty: 45 RF: 0 sucralfate 1 gram tablet 1 gm PO Q6H Qty: 120 RF: 0 gabapentin 300 mg capsule 300 mg PO TID Qty: 90 RF: 0 midodrine 5 mg tablet 5 mg PO TID Qty: 63 RF: 0 duloxetine 60 mg capsule,delayed release(DR/EC) 60 mg PO QAM Qty: 30 RF: 4 duloxetine [Cymbalta] 30 mg capsule,delayed release(DR/EC) 30 mg PO .morning Qty: 30 RF: 4 hydroxyzine pamoate [Vistaril] 25 mg capsule 25 mg PO BID PRN (Reason: anxiety) Qty: 60 RF: 4 trazodone 150 mg tablet 150 mg PO .9 pm PRN (Reason: sleep) Qty: 30 RF: 4 aspirin [Aspirin Low Dose] 81 mg Tablet,Delayed Release (Dr/Ec) 81 mg PO DAILY RF: 0 Hold Instructions: Resume on 12/06/19. shark cartilage 500 mg Capsule 750 mg PO DAILY RF: 0 CoQ-10 100 mg Capsule 200 mg PO DAILY RF: 0 Discharge Orders: Discharge Order (Routine); Ordered 09/16/20 Ordered By: Branden Randolph Referrals: Arielle Leavitt DO [Primary Care Provider] - Activity Restrictions/Additional Instructions: Case management will call with appointment to see Dr. Mendes. Continue previously prescribed antibiotics Discharge Date/Time: 09/16/20 15:46 Coding Level of Care Code ED Block Hacker for Chg Fwd Exam Comprehensive
[2020-09-16] MEDS: iohexol 300 mg/mL 100 mL Btl IV (14:43)
--- NOTE | 2020-09-16 15:19 | PM.MISC ---
Miscellaneous Note Purpose of Documentation: Document conversation and film review Note: Discussed patient with Dr. Hdez who saw him in the emergency department today. Presented with left flank pain and abdominal pain possible diverticulitis. Had been treated recently with antibiotics without any significant improvement. CT scan demonstrated left pyelocaliectasis with narrowing transition at the left UPJ without evidence of a stone. He does have renal calculi but no evidence of a stone at this area. There is some soft tissue density in that area but it is not obvious. Other findings on the CT scan include prostatomegaly. Agreed that follow-up in urology clinic was indicated. Request for cytology was made.
[2020-09-16 15:45] VITALS: BP 158/98; PULSE 78; RESP 14; O2SAT 97
--- NOTE | 2020-09-17 08:46 | DCPLANNER ---
office manager had message to schedule a follow up appointment for patient with Dr. Mendes. office manager called the office of Dr. Mendes, spoke with Marybeth, gave clinic patients information. office manager was told that patients information would be printed and reviewed. Clinic will call patient with appointment information.
--- NOTE | 2020-09-26 08:01 | DCPLANNER ---
Patient had a follow up appointment scheduled for 09.24.[address] Mendes - patient did attend appointment.
== END 2020-09-16 15:46 | disposition home or self-care (01) ==
PROVIDERS: Emergency Provider Family Medicine; PCP Family Medicine
DX: N13.5 Crossing vessel and stricture of ureter without hydronephrosis (principal); R31.9 Hematuria, unspecified; Z79.02 Long term (current) use of antithrombotics/antiplatelets; Z79.82 Long term (current) use of aspirin; J44.9 Chronic obstructive pulmonary disease, unspecified; E78.5 Hyperlipidemia, unspecified; Z87.891 Personal history of nicotine dependence
CPT/HCPCS: 12345; 71045; 74177; 80053; 83690; 85025; 93005; 99282; 99283; Q9967

== ENCOUNTER → 2020-09-24 17:01 | Outpatient (BNVA) | payer MEDICARE, SELFPAY | PROVIDERS: PCP Family Medicine; Visit Provider Urology | DX: R31.0 Gross hematuria (principal) | CPT/HCPCS: 88112 ==

== ENCOUNTER → 2020-10-04 07:46 | Outpatient (BNVA) | payer MEDICARE, SELFPAY | PROVIDERS: PCP Family Medicine; Visit Provider Nurse Practitioner Psychiatric/Mental Health | DX: F33.2 Major depressive disorder, recurrent severe without psychotic features (principal); F41.1 Generalized anxiety disorder | CPT/HCPCS: 99213 ==

== ENCOUNTER 2020-10-15 08:11 | Outpatient (CLI) | payer MEDICARE, SELFPAY ==
--- NOTE | 2020-10-15 08:00 | US_ITS ---
WS: [id number] ULTRASOUND RENAL TECHNIQUE: Ultrasound examination of both kidneys. CLINICAL INFORMATION: HYDRONEPHROSIS COMPARISON: None. FINDINGS: RIGHT: Simple right renal cyst measuring 1.4 x 0.9 x 0.7 cm Right kidney is normal in size and appearance. Echogenicity: Normal. Cortical thickness: 1.5 cm; Normal. Hydronephrosis: None. Perinephric fluid: None. Right kidney measures: 11.5 cm x 5.8 cm x 4.5 cm. LEFT: Left kidney is normal in size and appearance. Echogenicity: Normal. Cortical thickness: 1.7 cm; Normal. Hydronephrosis: None. Perinephric fluid: None. Left kidney measures: 12.3 cm x 6.9 cm x 6.6 cm. Normal visualized aorta. Normal bladder. Prostate measures 3.7-3.1 cm. US/US renal BI* [id number] IMPRESSION: 1. Simple right renal cyst measuring 1.4 x 0.9 x 0.7 cm 2. No hydronephrosis in either kidney.
--- NOTE | 2020-10-15 08:45 | XRR_ITS ---
PROCEDURE INFORMATION: Exam: XR Abdomen, 2 Views Exam date and time: 10/15/2020 8:26 AM Clinical indication: Screening exam; Additional info: Hydronephrosis/urolithiasis TECHNIQUE: Imaging protocol: XR of the abdomen. Views: 2 Views. COMPARISON: No relevant prior studies available. FINDINGS: Gastrointestinal tract: The bowel gas pattern is nonspecific. Air filled large bowel including distal rectal gas. Intraperitoneal space: Normal. No free air. Organs: 8 mm calcification lower pole right kidney Vasculature: Numerous calcifications in the pelvis likely phleboliths. Bones/joints: Unremarkable for age. XR/XR KUB [id number] IMPRESSION: The bowel gas pattern is nonspecific. Air filled large bowel including distal rectal gas.
== END 2020-10-15 08:12 | disposition home or self-care (01) ==
PROVIDERS: PCP Family Medicine; Visit Provider Urology
DX: N13.30 Unspecified hydronephrosis (principal); N20.9 Urinary calculus, unspecified; N28.1 Cyst of kidney, acquired
CPT/HCPCS: 74018; 76770; 81003

== ENCOUNTER → 2021-01-01 07:13 | Outpatient (BNVA) | payer MEDICARE, SELFPAY | PROVIDERS: PCP Family Medicine; Visit Provider Nurse Practitioner Psychiatric/Mental Health | DX: F33.2 Major depressive disorder, recurrent severe without psychotic features (principal); F41.1 Generalized anxiety disorder | CPT/HCPCS: 99214 ==

== ENCOUNTER → 2021-01-29 08:08 | Outpatient (BNVA) | payer MEDICARE, SELFPAY | PROVIDERS: PCP Family Medicine; Visit Provider Specialist | DX: G43.711 Chronic migraine without aura, intractable, with status migrainosus (principal); G98.8 Other disorders of nervous system; R56.9 Unspecified convulsions; F41.1 Generalized anxiety disorder; F33.2 Major depressive disorder, recurrent severe without psychotic features; Z87.891 Personal history of nicotine dependence | CPT/HCPCS: 99215 ==

== ENCOUNTER 2021-02-11 07:58 | Outpatient (CLI) | payer MEDICARE, SELFPAY ==
--- NOTE | 2021-02-11 08:00 | MR_ITS ---
WS: [id number] MRA HEAD TECHNIQUE: Axial 3-D TOF images obtained with axial images and axial, sagittal, and coronal 2-D refor matted images. CLINICAL INFORMATION: R29.90 - Unspecified symptoms and signs involving the nervous system COMPARISON: Multiple prior MRIs and MRAs August 2019 April 02, 2019 FINDINGS: Dominant distal left vertebral artery. Small hypoplastic distal right vertebral artery. Basilar arter y is patent. Normal vascularity to the [employer] territory bilaterally. Both ICAs are patent at the skull b ase. Tortuous cavernous carotid arteries. Normal vascularity to the LEXY and MCA territories bilateral ly. No evidence of high-grade proximal stenosis or aneurysm. Partial opacification mastoid air cells bilaterally. MR/MR angio head wo con [id number] IMPRESSION: 1. No evidence of flow-limiting stenosis or aneurysm. 2. Dominant distal left vertebral artery unchanged. 3. Overall no significant changes since 2019
--- NOTE | 2021-02-11 08:16 | MR_ITS ---
WS: [id number] MRI HEAD WITHOUT CONTRAST TECHNIQUE: Sagittal T1, T2 axial, T2 axial FLAIR, axial and coronal T1 images, axial susceptibility w eighted imaging, axial diffusion weighted images, and coronal T2 images were obtained. CLINICAL INFORMATION: G98.8 - Other disorders of nervous system COMPARISON: None. FINDINGS: No evidence restricted diffusion to suggest acute ischemia. Ventricular system and basal cisterns are patent. Mild small vessel changes. Moderate parenchymal volume loss. Normal posterior fossa. Normal vascular flow voids at the skull base. No extra-axial fluid collections. Mild mucosal thickening ethmoid air cells. Partial opacification mastoid air cells bilaterally. Chron ic focus of hemosiderin in the right cerebellar vermis unchanged. Postoperative changes partially vis ualized in the upper cervical spine. Partially visualized orbits are normal. Normal optic chiasm and pituitary infundibulum. Normal cavernous sinuses and Meckel's cave. MR/MR head wo con* [id number] IMPRESSION: 1. No evidence of restricted diffusion to suggest acute ischemia. 2. Mild small vessel changes. Moderate parenchymal volume loss. This is stable compared to 2019. 3. Partial opacification of the mastoid air cells bilaterally. Mild mucosal th ickening in the ethmoid air cells. 4. Chronic focus of hemosiderin in the right cerebellar vermis unchanged. No o ther foci of hemosiderin. 5. Mild symmetric atrophy temporal lobes and hippocampal formations. 6. Overall no significant interval changes since 2019.
== END 2021-02-11 07:59 | disposition home or self-care (01) ==
LOC: RADWPI 08:12
PROVIDERS: PCP Family Medicine; Visit Provider Specialist
DX: G98.8 Other disorders of nervous system (principal); F09 Unspecified mental disorder due to known physiological condition; G43.711 Chronic migraine without aura, intractable, with status migrainosus; Z87.891 Personal history of nicotine dependence; R30.0 Dysuria; R29.90 Unspecified symptoms and signs involving the nervous system
CPT/HCPCS: 70544; 70551; 81000; 95816

== ENCOUNTER → 2021-02-12 07:34 | Outpatient (BNVA) | payer MEDICARE, SELFPAY | PROVIDERS: PCP Family Medicine; Visit Provider Nurse Practitioner Psychiatric/Mental Health | DX: F33.2 Major depressive disorder, recurrent severe without psychotic features (principal); F41.1 Generalized anxiety disorder | CPT/HCPCS: 99214 ==

== ENCOUNTER → 2021-03-10 07:16 | Outpatient (BNVA) | payer MEDICARE, SELFPAY | PROVIDERS: PCP Family Medicine; Visit Provider Nurse Practitioner Psychiatric/Mental Health | DX: F33.2 Major depressive disorder, recurrent severe without psychotic features (principal); F41.1 Generalized anxiety disorder | CPT/HCPCS: 99214 ==

== ENCOUNTER 2021-03-26 09:47 | Outpatient (CLI) | payer MEDICARE, SELFPAY ==
--- NOTE | 2021-03-26 09:54 | XR_ITS ---
WS: [id number] HIPS BILATERAL TECHNIQUE: 5 views bilateral hips Including pelvis CLINICAL INFORMATION: bilateral hip pain COMPARISON: None. FINDINGS: Moderate degenerative arthritis both hips with joint space narrowing. This is slightly worse in the r ight. Mild hypertrophic changes along the acetabulum. Normal femoral necks bilaterally. No acute frac tures. Normal visualized pubic rami. XR/XR hip BI 3-4V wo/w pel [id number] IMPRESSION: Moderate degenerative arthritis both hips with joint space narrowing. No acute fractures.
--- NOTE | 2021-03-26 09:54 | XR_ITS ---
WS: [id number] KNEE RIGHT TECHNIQUE: 3 views of the right knee CLINICAL INFORMATION: knee pain COMPARISON: 4 15,019 FINDINGS: Osteopenia. Postoperative changes right TKA. No evidence of hardware loosening. Hypertrophic patella. Small suprapatellar effusion. XR/XR knee RT 3V* [id number] IMPRESSION: 1. Postoperative changes right TKA. No evidence of hardware loosening. 2. Small suprapatellar effusion. 3. Hypertrophic patella. Kellgren-Mauri Classification: NA
--- NOTE | 2021-03-26 09:54 | XR_ITS ---
WS: [id number] KNEE LEFT TECHNIQUE: 3 views of the left knee CLINICAL INFORMATION: knee pain COMPARISON: None. FINDINGS: Normal anatomic alignment. Postoperative changes left TKA. No evidence of hardware loosening. Osteope kathy. Hypertrophic changes along the joint line. Patellar resurfacing. Hypertrophic patella. Soft tiss ue edema. Small suprapatellar effusion. XR/XR knee LT 3V* [id number] IMPRESSION: Normal postoperative left TKA. Kellgren-Mauri Classification: NA
== END 2021-03-26 09:48 | disposition home or self-care (01) ==
PROVIDERS: PCP Family Medicine; Visit Provider Family Medicine
DX: M25.561 Pain in right knee (principal); M25.562 Pain in left knee; M25.551 Pain in right hip; M25.552 Pain in left hip; M25.461 Effusion, right knee; Z96.653 Presence of artificial knee joint, bilateral; M16.0 Bilateral primary osteoarthritis of hip
CPT/HCPCS: 73522; 73562; 81000

== ENCOUNTER 2021-04-16 09:18 | Outpatient (CLI) | payer MEDICARE, SELFPAY ==
--- NOTE | 2021-04-16 08:45 | XR_ITS ---
WS: [id number] KUB, AP view, 04/16/2021 Clinical Data: N20.9 - Urinary calculus, unspecified Comparison: KUB, 10/15/2020. Findings: There is a 0.8 cm calcification overlying the lower pole of the left kidney. There are numerous calci fications overlying the right kidney but they have the appearance of gallstones. There is also a 0.7 cm calcification which may be in the lower pole of the right kidney There is a large amount of fecal material in colon gas obscuring detail over the right kidney. There are numerous phleboliths in the pelvis. These calcifications would obscure UVJ calcifications. XR/XR KUB [id number] Impression: 1. Probable bilateral renal calcifications. 2. Probable cholelithiasis. 3. Multiple pelvic calcifications most of which are phleboliths.
== END 2021-04-16 09:19 | disposition home or self-care (01) ==
LOC: RAD 09:20
PROVIDERS: PCP Family Medicine; Visit Provider Urology
DX: N20.9 Urinary calculus, unspecified (principal); I87.8 Other specified disorders of veins; R30.0 Dysuria
CPT/HCPCS: 74018; 81003; 87086

== ENCOUNTER → 2021-06-26 07:23 | Outpatient (BNVA) | payer MEDICARE, SELFPAY | PROVIDERS: PCP Family Medicine; Visit Provider Nurse Practitioner Psychiatric/Mental Health | DX: F33.2 Major depressive disorder, recurrent severe without psychotic features (principal); F41.1 Generalized anxiety disorder | CPT/HCPCS: 99214 ==

== ENCOUNTER → 2021-07-03 10:07 | Outpatient (BNVA) | payer MEDICARE, SELFPAY | PROVIDERS: PCP Family Medicine; Visit Provider Family Medicine | DX: E78.5 Hyperlipidemia, unspecified (principal) | CPT/HCPCS: 80053; 80061; 85025 ==

== ENCOUNTER → 2021-08-07 07:31 | Outpatient (BNVA) | payer MEDICARE, SELFPAY | PROVIDERS: PCP Family Medicine; Visit Provider Nurse Practitioner Psychiatric/Mental Health | DX: F33.2 Major depressive disorder, recurrent severe without psychotic features (principal); F41.1 Generalized anxiety disorder | CPT/HCPCS: 99214 ==

== ENCOUNTER → 2021-08-20 08:49 | Outpatient (BNVA) | payer MEDICARE, SELFPAY | PROVIDERS: PCP Family Medicine; Visit Provider Specialist | DX: G43.711 Chronic migraine without aura, intractable, with status migrainosus (principal); F41.1 Generalized anxiety disorder; N20.0 Calculus of kidney; Z86.73 Personal history of transient ischemic attack (TIA), and cerebral infarction without residual deficits; Z87.891 Personal history of nicotine dependence | CPT/HCPCS: 99214 ==

== ENCOUNTER → 2021-08-28 16:05 | Outpatient (BNVA) | payer MEDICARE, SELFPAY | PROVIDERS: PCP Family Medicine; Visit Provider Nurse Practitioner Family | DX: N39.0 Urinary tract infection, site not specified (principal); R30.0 Dysuria | CPT/HCPCS: 81003; 87086 ==

== ENCOUNTER 2021-09-15 13:23 | Outpatient (CLI) | payer MEDICARE, SELFPAY ==
--- NOTE | 2021-09-15 13:28 | XRR_ITS ---
PROCEDURE INFORMATION: Exam: XR Abdomen Exam date and time: 09/15/2021 1:28 PM Age: 61 years old Clinical indication: Condition or disease; Other: Nephrolithiasis; Prior surgery; Surgery type: Gb, kidney stone (lithotripsy x 3) TECHNIQUE: Imaging protocol: XR of the abdomen. Views: Frontal supine view of the abdomen. 1 View. COMPARISON: CR XR KUB [id number] 04/16/2021 9:41 AM FINDINGS: Lungs: Visualized lungs are clear. Gastrointestinal tract: Increased fecal content in the colon. Nonobstructive bowel gas pattern. Intraperitoneal space: No free intraperitoneal air. Organs: No organomegaly. Small calcifications projecting over the lower aspects of the right and left renal shadows are stable and suggest renal stones. There are 2 on the right, the larger measures 5.6 mm. The left renal stone measures 8.2 mm. A large stone projecting over the upper right renal shadow is no longer visualized. Vasculature: Multiple calcifications in the pelvis most likely representing calcified phleboliths. Bones/joints: Degenerative changes in the spine, sacroiliac joints, and hips. XR/XR KUB [id number] IMPRESSION: 1. Nonobstructed bowel gas pattern. 2. Increased fecal content in the colon. 3. Small calcifications projecting over the lower aspects of the right and left renal shadows are stable and suggest renal stones. 4. A large stone projecting over the upper right renal shadow is no longer visualized. 5. Incidental/nonacute findings are listed in the report. Radiation Dose CTDIVOL = (mGy): DLP = (mGy-cm)
== END 2021-09-15 13:24 | disposition home or self-care (01) ==
LOC: RAD 13:26
PROVIDERS: PCP Family Medicine; Visit Provider Urology
DX: N20.0 Calculus of kidney (principal)
CPT/HCPCS: 74018

== ENCOUNTER → 2021-10-22 10:57 | Outpatient (BNVA) | payer MEDICARE, SELFPAY | PROVIDERS: PCP Family Medicine; Referring Provider Family Medicine; Visit Provider Specialist | DX: M25.562 Pain in left knee (principal); M25.561 Pain in right knee | CPT/HCPCS: 73560; 73565 ==

== ENCOUNTER → 2021-11-21 07:27 | Outpatient (BNVA) | payer MEDICARE, SELFPAY | PROVIDERS: PCP Family Medicine; Visit Provider Nurse Practitioner Psychiatric/Mental Health | DX: F41.1 Generalized anxiety disorder (principal); F33.2 Major depressive disorder, recurrent severe without psychotic features; Z03.89 Encounter for observation for other suspected diseases and conditions ruled out | CPT/HCPCS: 99214 ==

== ENCOUNTER → 2021-11-25 09:14 | Outpatient (BNVA) | payer MEDICARE, SELFPAY | PROVIDERS: PCP Family Medicine; Visit Provider Specialist | DX: G43.711 Chronic migraine without aura, intractable, with status migrainosus (principal); F41.1 Generalized anxiety disorder; G62.9 Polyneuropathy, unspecified; F03.90 Unspecified dementia, unspecified severity, without behavioral disturbance, psychotic disturbance, mood disturbance, and anxiety | CPT/HCPCS: 96116; 99214 ==

== ENCOUNTER → 2022-01-02 07:33 | Outpatient (BNVA) | payer MEDICARE, SELFPAY | PROVIDERS: PCP Family Medicine; Visit Provider Nurse Practitioner Psychiatric/Mental Health | DX: F33.2 Major depressive disorder, recurrent severe without psychotic features (principal); F41.1 Generalized anxiety disorder; F03.90 Unspecified dementia, unspecified severity, without behavioral disturbance, psychotic disturbance, mood disturbance, and anxiety; Z03.89 Encounter for observation for other suspected diseases and conditions ruled out | CPT/HCPCS: 99214 ==

== ENCOUNTER → 2022-01-26 08:40 | Outpatient (BNVA) | payer MEDICARE, SELFPAY | PROVIDERS: PCP Family Medicine; Visit Provider Family Medicine | DX: E78.5 Hyperlipidemia, unspecified (principal); K21.9 Gastro-esophageal reflux disease without esophagitis | CPT/HCPCS: 80053 ==

== ENCOUNTER → 2022-02-05 09:12 | Outpatient (BNVA) | payer MEDICARE, SELFPAY | PROVIDERS: PCP Family Medicine; Visit Provider Internal Medicine | DX: E27.40 Unspecified adrenocortical insufficiency (principal); E78.5 Hyperlipidemia, unspecified; Z87.891 Personal history of nicotine dependence | CPT/HCPCS: 99204 ==

== ENCOUNTER → 2022-02-13 10:43 | Outpatient (BNVA) | payer MEDICARE, SELFPAY | PROVIDERS: PCP Family Medicine; Visit Provider Nurse Practitioner Psychiatric/Mental Health | DX: F33.2 Major depressive disorder, recurrent severe without psychotic features (principal); F41.1 Generalized anxiety disorder; F03.90 Unspecified dementia, unspecified severity, without behavioral disturbance, psychotic disturbance, mood disturbance, and anxiety | CPT/HCPCS: 99214 ==

== ENCOUNTER → 2022-04-03 08:10 | Outpatient (BNVA) | payer MEDICARE, SELFPAY | PROVIDERS: PCP Family Medicine; Visit Provider Nurse Practitioner Psychiatric/Mental Health | DX: F33.2 Major depressive disorder, recurrent severe without psychotic features (principal); F41.1 Generalized anxiety disorder; F03.90 Unspecified dementia, unspecified severity, without behavioral disturbance, psychotic disturbance, mood disturbance, and anxiety | CPT/HCPCS: 99214 ==

== ENCOUNTER → 2022-06-30 15:26 | Outpatient (BNVA) | payer MEDICARE, SELFPAY | PROVIDERS: PCP Family Medicine; Visit Provider Family Medicine | DX: R30.0 Dysuria (principal) | CPT/HCPCS: 81000 ==

== ENCOUNTER → 2022-07-27 08:44 | Outpatient (BNVA) | payer MEDICARE, SELFPAY | PROVIDERS: PCP Family Medicine; Visit Provider Family Medicine | DX: E78.5 Hyperlipidemia, unspecified (principal) | CPT/HCPCS: 80053; 80061; 85025 ==

== ENCOUNTER → 2022-09-02 08:36 | Outpatient (BNVA) | payer MEDICARE, MEDICAID, SELFPAY | PROVIDERS: PCP Family Medicine; Visit Provider Internal Medicine | DX: E27.9 Disorder of adrenal gland, unspecified (principal); R41.3 Other amnesia; Z87.891 Personal history of nicotine dependence | CPT/HCPCS: 99214 ==

== ENCOUNTER → 2022-12-03 08:44 | Outpatient (BNVA) | payer MEDICARE, MEDICAID, SELFPAY | PROVIDERS: PCP Family Medicine; Visit Provider Internal Medicine | DX: E27.9 Disorder of adrenal gland, unspecified (principal); R41.3 Other amnesia | CPT/HCPCS: 36415; 80048; 82533; 84305; 99215 ==

== ENCOUNTER → 2022-12-29 08:20 | Day surgery (SDC) | payer MEDICARE, MEDICAID, SELFPAY ==
[2022-12-29 08:32] VITALS: BP 166/79; PULSE 58; RESP 18; TEMP 36.3; O2SAT 98
[2022-12-29] MEDS: cosyntropin 0.25 mg SDV IVP (08:38)
--- NOTE | 2022-12-29 08:49 | PC.NURSE ---
Pt to GI lab for Cosyntropin stimulation test. Baseline level drawn and sent to lab. Medication given with labs to be drawn at 30 and 60 min. Pt tolerated well.
[2022-12-29 09:17] LABS: Cosyntropin Baseline 8.84 mcg/dL
[2022-12-29 10:03] LABS: Cosyntropin 30 Minute 17.45 mcg/dL
[2022-12-29 11:58] LABS: Cosyntropin 1 Hour 19.76 mcg/dL
== END ==
PROVIDERS: PCP Family Medicine; Visit Provider Internal Medicine
DX: E27.9 Disorder of adrenal gland, unspecified (principal)
CPT/HCPCS: 36415; 82533; 96374; J0834